=== PATIENT | male | born 1970 | race Caucasian/White ===

== ENCOUNTER 2018-12-09 14:05 | Inpatient (IN) | payer OTHER ==
[2018-12-09] MEDS ORDERED: Morphine 10 MG/ML VIAL (1 ml) IV ONE (17:27)
[2018-12-09] MEDS ORDERED: Ondansetron INJ* 2 MG/ML VIAL IV ONE (17:27)
[2018-12-09] MEDS ORDERED: NS 0.9% 1000 ML** 1,000 ML IV ONE (17:27)
[2018-12-09 17:47] LABS: ABS Basophils 0.1 10^3/ul (0-0.2); ABS Eosinophils 0.1 10^3/ul (0-0.6); ABS Lymphocytes 1.4 10^3/ul (1.0-4.8); ABS Monocytes 0.4 10^3/ul (0-0.8); ABS Neutrophils 3.3 10^3/ul (1.5-7.7); ABS Nucleated RBC 0 10^3/ul; Eosinophil % 2.2 %; Hematocrit 35 % (36-46); Hemoglobin 11.8 g/dL (14.0-18.0); Lymphocyte % 26.5 %; Mean Corpuscular HGB Conc 34 g/dL (31-36); Mean Corpuscular Hemoglobin 31 pg (27-31); Mean Corpuscular Volume 90 fL (80-94); Mean Platelet Volume 6.4 fL (7.4-10.4); Nucleated Red Blood Cells % 0; Platelet Count 220 10^3/uL (150-450); Red Blood Count 3.86 10^6 /uL (4.18-5.48); Red Cell Distribution Width 14 % (10.5-15); White Blood Count 5.4 10^3/uL (3.5-10.8)
[2018-12-09] MEDS ORDERED: Morphine 4 MG/ML VIAL (1 ml) 4 MG/ML VIAL ONE (17:50)
[2018-12-09 18:02] LABS: Albumin 4.2 g/dL (3.2-5.2); Albumin/Globulin Ratio 1.5 (1-3); BUN/Creatinine Ratio 28.6 (8-20); C Reactive Protein 1.64 mg/L (<8.01); Calcium 9.4 mg/dL (8.6-10.3); EGFR African American 118.5 (>60); EGFR Non-African American 97.9 (>60); Globulin 2.8 g/dL (2-4); Potassium 4.8 mmol/L (3.5-5.0); Total Bilirubin 0.3 mg/dL (0.2-1.0)
[2018-12-09] MEDS ORDERED: Iodixanol* (CONTRAST) 320 MG/ML 100 ML SDV IV ONE (18:10)
[2018-12-09 18:15] LABS: Urine Appearance Clear; Urine Bilirubin Negative (Negative); Urine Blood Negative (Negative); Urine Color Straw; Urine Glucose Negative (Negative); Urine Ketones Negative (Negative); Urine Nitrite Negative (Negative); Urine Protein Negative (Negative); Urine Specific Gravity 1.006 (1.010-1.030); Urine Urobilinogen Negative (Negative)
[2018-12-09] MEDS ORDERED: Lorazepam PYXIS KEY PRN ×3 (18:30→20:23)
[2018-12-09] MEDS ORDERED: LORazepam INJ* 2 MG/ML 1 ML VIAL IV ONE ×2 (18:30→18:31)
[2018-12-09] MEDS ORDERED: Lorazepam PYXIS KEY ONE ×2 (18:33→20:27)
[2018-12-09] MEDS ORDERED: LORazepam INJ* 2 MG/ML 1 ML VIAL IV PUSH ONE (20:23)
--- NOTE | 2018-12-09 21:21 | PN ---
Progress Note - Progress Note Date of Service: 12/09/18 Note: Surgery Progress Note Please see full dictate H&P but briefly, patient is a 48 yo M with a history of IVDU, DM and a right inguinal hernia for about 1.5 months that was reducible until this afternoon at about 12:30pm. He said he suddenly had pain around his right groin and was unable to reduce the hernia. He therefore came to the ED. Labs, vitals were within normal limits. CT abd was reviewed and showed an incarcerated right inguinal hernia repair with bowel. On exam he is tender and has a non reducible hernia. Informed consent was obtained for an open right inguinal hernia repair with mesh, possible bowel resection. Risks, benefits and alternatives were discussed. Risks include but are not limited to bleeding , hematoma, infection, mesh infection, testicular atrophy, injury to nearby structures, chronic pain, hernia recurrence and anastomotic leak should a bowel resection be performed. He understands and wishes to proceed.
[2018-12-09] MEDS ORDERED: Clindamycin 900 MG IVPREMIX(* 900 MG/50 ML SDV IV ONE (21:32)
[2018-12-09] MEDS ORDERED: Midazolam* 1 MG/ML 5 ML VIAL (5 MG) ONE (21:45)
[2018-12-09] MEDS ORDERED: Rocuronium* 10 MG/ML VIAL ONE (21:45)
[2018-12-09] MEDS ORDERED: fentaNYL* 50 MCG/ML 2 ML VIAL (100 MCG VIAL) ONE (21:45)
[2018-12-09] MEDS ORDERED: Gabapentin CAP(*) 300 MG PO ONE (21:54)
[2018-12-09] MEDS ORDERED: Gabapentin CAP(*) 300 MG ONE (21:55)
[2018-12-09] MEDS ORDERED: Famotidine IV* 10 MG/ML 2 ML (20 mg) IV SLOW PU ONE (21:55)
[2018-12-09] MEDS ORDERED: Famotidine IV* 10 MG/ML 2 ML (20 mg) ONE (21:56)
[2018-12-09] MEDS ORDERED: DiMENhydriNATE IV* 50 MG/ML VIAL IV PUSH PRN (21:56)
[2018-12-09] MEDS ORDERED: Acetaminophen IV 1GM/100ML * 1,000 MG/100 ML VIAL IVPB ONE (21:56)
[2018-12-09] MEDS ORDERED: Gabapentin CAP(*) 100 MG PO ONE (21:57)
[2018-12-09] MEDS ORDERED: Propofol* 10 MG/ML 20 ML BTL ONE (22:17)
[2018-12-09] MEDS ORDERED: Ondansetron INJ* 2 MG/ML VIAL ONE (22:17)
[2018-12-09] MEDS ORDERED: Ketorolac INJ* 30 MG/ML 1 ML VIAL ONE (22:17)
[2018-12-09] MEDS ORDERED: Lidocaine 2% PF * 5 ML VIAL ONE (22:17)
[2018-12-09] MEDS ORDERED: Dexamethasone IV* 4 MG/ML 1 ML (4 MG) ONE (22:17)
[2018-12-09] MEDS ORDERED: Succinylcholine* 20 MG/ML 10 ML VIAL ONE (22:17)
[2018-12-09] MEDS ORDERED: DiMENhydriNATE IV* 50 MG/ML VIAL ONE (22:17)
[2018-12-09] MEDS ORDERED: KETAMINE HCL* 50 MG/ML 10 ML VIAL ONE (22:19)
--- NOTE | 2018-12-09 22:51 | HP ---
HISTORY AND PHYSICAL: DATE OF ADMISSION: 12/09/18 SERVICE: General surgery. ATTENDING SURGEON: Calista Bragg MD. REASON FOR ADMISSION: Incarcerated right inguinal hernia. HISTORY OF PRESENT ILLNESS: Mr. Melendez is a 48-year-old man with a history of IV drug use, diabetes mellitus, and a formerly reducible right inguinal hernia for the past 1-1/2 months. The patient was in his normal state of health until about 12:30 this afternoon, when after eating lunch he suddenly had right inguinal pain and found he was unable to reduce his hernia. He says that he started having diffuse abdominal pain after this and he came to the emergency room for evaluation. He denies having any nausea or vomiting. He was passing flatus and did have a bowel movement earlier this morning. He said that his last IV drug use was about 5 months ago and he has no history of groin surgery in the past. PAST MEDICAL HISTORY: 1. Diabetes mellitus. 2. IV drug use. PAST SURGICAL HISTORY: Multiple bilateral knee surgeries. MEDICATIONS: 1. Suboxone. 2. Lantus. 3. Gabapentin. 4. Ibuprofen as needed. ALLERGIES: ZOSYN. FAMILY HISTORY: Noncontributory. SOCIAL HISTORY: Former IV drug user, currently in a drug detox facility. REVIEW OF SYSTEMS: Negative, except for diffuse abdominal pain and right groin pain. PHYSICAL EXAMINATION GENERAL: This is a middle-aged man, lying somewhat comfortably in bed, in no great distress and converses easily. VITAL SIGNS: Temperature is 98.9, pulse is 84, respiratory rate of 22, O2 sat is 95% on room air, blood pressure is 124/83. HEENT: Normocephalic, atraumatic. RESPIRATORY: Clear to auscultation bilaterally. CARDIOVASCULAR: Regular rate and rhythm. ABDOMEN: Soft, somewhat tender diffusely. No rebound tenderness. No guarding. The right groin, there is an inguinal hernia that is nonreducible and tender to palpation with no overlying skin changes. DIAGNOSTIC STUDIES/LAB DATA: Laboratory Values: White blood cell count is 5.4 , hemoglobin is 11.8, hematocrit 35, platelets are 220. Sodium is 138, potassium is 12.8, chloride is 101, CO2 of 33, BUN 24, creatinine is 0.84, glucose is 167. LFTs are normal. Imaging: CT abdomen and pelvis shows a right inguinal hernia containing loops of small-bowel with dilated loops noted entering via collaterals noted exiting from the hernia. Findings are concerning for obstruction. There is wall thickening noted of the small-bowel loop within the right inguinal hernia. There is trace stranding of fluid. There are regions of ground-glass opacification noted in the bilateral lung bases. ASSESSMENT AND PLAN: Mr. Melendez is a 48-year-old male with a history of IV drug use and diabetes who presents with an incarcerated right inguinal hernia since this afternoon around 12:30 p.m. Given that this is incarcerated with some stranding and there is some question of bowel viability, he must be urgently taken to the operating room for an open right inguinal hernia repair with mesh and a possible bowel resection. I reviewed the risks of the surgery, which include but are not limited to bleeding, hematoma, wound infection, mesh infection, injury to nearby structures, testicular atrophy, injury to the vas deferens, injury to the bladder, the possibility of anastomotic leak should a small-bowel resection be performed, a risk of hernia recurrence and other perioperative risks including myocardial infarction, stroke, and other systemic complications. Anesthetic options and risks will be discussed with the anesthesiologist separately. The patient understands all these things and he wishes to proceed urgently to the operating room. [id number]/[facility] #: [id number] MTDRebekah
[2018-12-09] MEDS ORDERED: Bupivacaine 0.25% SDV PF* 10 ML VIAL INJ ONE (22:53)
[2018-12-09] MEDS ORDERED: Gabapentin CAP(*) 100 MG ONE (23:15)
[2018-12-09] MEDS ORDERED: Acetaminophen IV 1GM/100ML * 100 ML ONE (23:15)
[2018-12-09] MEDS ORDERED: Ketorolac INJ* 15 MG/ML 1 ML VIAL IV PUSH PRN (23:42)
[2018-12-09] MEDS ORDERED: Ondansetron INJ* 2 MG/ML VIAL IV PRN (23:42)
[2018-12-09] MEDS ORDERED: Ibuprofen TAB* 600 MG PO PRN (23:42)
[2018-12-09] MEDS ORDERED: Acetaminophen TAB* 325 MG PO PRN (23:42)
[2018-12-09] MEDS ORDERED: Lactated Ringers 1000 ML Bag* 1,000 ML IV SCH (23:45)
--- NOTE | 2018-12-10 02:25 | OP ---
DATE OF OPERATION: 12/09/18 - ROOM #350 DATE OF : 72 SERVICE: General Surgery. ATTENDING SURGEON: Calista Bragg MD. FACETOR: Rene Montana MD. ANESTHESIOLOGIST: Kadie Johnson MD. ANESTHESIA: General endotracheal anesthesia. PRE-OP DIAGNOSIS: Incarcerated right inguinal hernia. POST-OP DIAGNOSIS: Incarcerated right inguinal hernia. OPERATIVE PROCEDURE: Open right inguinal hernia repair with mesh. ESTIMATED BLOOD LOSS: Minimal, 10 cc. INDICATIONS: Mr. Melendez is a 48-year-old male with a history of IV drug use and diabetes mellitus, who presented to the emergency room with a painful incarcerated right inguinal hernia. It was unable to be reduced, and on CT scan , there was evidence of thickening of the bowel that was within the sac. Therefore, he gave informed consent for an urgent open right inguinal hernia repair and possible small bowel resection. He understood the risks, benefits, and alternatives of the procedure and he wished to proceed. DESCRIPTION OF PROCEDURE: The patient was brought back to the operating room and placed on the operating table in the supine position. Sequential compression devices were placed in his bilateral lower extremities for DVT prophylaxis. Antibiotic with clindamycin was administered prior to the incision. General endotracheal anesthesia was induced and the patient's right groin and testicle were prepped and draped in normal sterile fashion. Prior to this, he did have a Vizcarra catheter placed in his bladder. Next, a time-out was performed, verifying the patient's name, MR number, and the procedure to be performed, which was a right inguinal hernia repair. On examination, it appeared that after induction of anesthesia, his inguinal hernia did appear to have reduced spontaneously. An oblique incision was made approximately 2 fingerbreadths above the inguinal ligament. The skin was divided down through subcutaneous tissue. Hailey fascia was divided and until the external oblique was exposed. Once this was exposed, the external ring was visible, and using Metzenbaum scissors, the external oblique aponeurosis was divided sharply and both upper and lower external oblique leaflets were retracted laterally and the inguinal canal contents were encircled using blunt dissection, and then once they were encircled, a Harborton drain was used to be able to retract them. The patient was noted to have a hernia sac that was in some areas rather thickened, and once the sac was from the cord contents, it was opened up and the intraabdominal contents were examined. There was no evidence of sliding hernia within the hernia sac, and there was a small amount of clear serous fluid from the intraabdominal cavity. Once this was noted, the hernia sac was completely dissected away from the cord structures down to the deep inguinal ring and then it was suture ligated and divided and taken off the table. After this, the hernia sac then retracted into the deep ring and then the cord structures were examined. Care was taken to avoid injury to the vas deferens. There was no evidence of a direct hernia; therefore, attention was turned towards repairing the floor of the inguinal canal. A polypropylene mesh was selected and secured to the pubic tubercle using a 3-0 Vicryl suture, which was then run up the inguinal ligament. Interrupted sutures were placed to secure the mesh at the conjoint tendon and tails were secured around the cord contents and approximated using a 3-0 Vicryl suture. Once this was done, the floor of the inguinal canal was very nicely reinforced with this mesh. At this point, hemostasis was obtained and then the external oblique aponeurosis was closed using a running 3-0 Vicryl suture and the external ring was reapproximated. Next, Hailey fascia was closed using interrupted 3-0 Vicryl sutures and the subcutaneous tissue was closed using interrupted 3-0 Vicryl sutures. The skin was closed using running 4-0 Monocryl suture, and prior to closing, approximately 30 cc of local anesthetic with 0.25 % Marcaine was administered to the field. After this, sterile dressing was then placed over the incision. The right testicle was noted to be in appropriate descended position in the testicle. The patient's anesthesia was reversed. His Vizcarra catheter was removed, and he was taken to PACU in stable condition. At the end of the case, all counts were correct and I was present during the entirety of the case. [id number]/[facility] #: [id number] [facility] HOSPITALRebekah
[2018-12-10] MEDS ORDERED: Heparin VIAL(*) 5000 UNITS/ML VIAL (FIVE THOUSAND) SUBCUT SCH (09:00)
[2018-12-10] MEDS ORDERED: Buprenorp/Nalox 8-2 MG FILM 1 EACH SL FILM SCH (09:00)
[2018-12-10] MEDS ORDERED: Dextrose 50% Syringe 50 ML* 25 GM/50 ML SYRINGE IV PUSH PRN (09:55)
--- NOTE | 2018-12-10 10:04 | PN ---
Progress Note - Progress Note Date of Service: 12/10/18 SOAP: Subjective:pod#1 s/p open right inguinal hernia repair with mesh minimal pain,amos solid diet,ambulating,voiding [] Objective: Vital Signs Temp 97.9 F 12/10/18 09:11 Pulse 75 12/10/18 09:11 Resp 17 12/10/18 09:11 BP 104/56 12/10/18 09:11 Pulse Ox 92 12/10/18 09:11 Intake & Output 12/09/18 12/10/18 12/10/18 18:59 06:59 18:59 Intake Total 1950 640 Output Total 700 800 Balance 1250 -160 Weight 215 lb 215 lb Intake: IV Fluids 1650 CLINDAMYCIN 900MG 50 LR 600 Oral 300 640 Output: Urine 700 800 Other: # Bowel Movements 0 lungs:clear bilat;heart:RRR;abd:+bs,soft,nondistended;R groin incision covered with gauze and tegaderm,no strike through drainage or erythema,appropriate tenderness;ext:nontender calves;FSBS 232 [] Assessment:stable pod#1 [] Plan:sliding scale insulin ordered;discharge after lunch today,instructions reviewed,office followup next week with []
[2018-12-10 11:30] VITALS: BP 117/65
[2018-12-10] MEDS ORDERED: Insulin LISPRO* 1 UNITS UNIT SUBCUT SCH (11:30)
--- NOTE | 2018-12-10 13:57 | DS ---
DISCHARGE SUMMARY: DATE OF ADMISSION: 12/09/18 DATE OF DISCHARGE: 12/10/18 SERVICE: General Surgery. ADMISSION DIAGNOSIS: Incarcerated right inguinal hernia. DISCHARGE DIAGNOSES: Incarcerated right inguinal hernia. OPERATION: Open right inguinal hernia repair with mesh. HOSPITAL COURSE: Mr. Doshi is a 48-year-old male with the history of IV drug use and diabetes mellitus, who presented to the emergency room on 12/09/18 with complaints of incarcerated right inguinal hernia that he could not reduce. He was having significant abdominal pain and the CT scan was also done showing small bowel within the right inguinal canal that appeared thickened with some stranding around and fluid. Given that this was unable to be reduced in the emergency room, he was taken urgently to the operating room for open right inguinal hernia repair with mesh. The surgery was uneventful and on the day of discharge, on postoperative day #1, the patient was doing very well. His abdominal pain was gone. He had minimal pain around his incision. He was tolerating a regular diet. He was ambulating. His vital signs were within normal limits and he was urinating without difficulty. Therefore, he is determined to be an appropriate candidate for discharge. DISCHARGE PHYSICAL EXAMINATION: Vital Signs: Temperature is 98.3, pulse is 78 , respiratory rate is 17, O2 sat is 93% on room air, blood pressure is 117/65. General: He is a young man lying very comfortably in bed, in no apparent distress, in good spirits. Right groin incision has non-saturated dressing over it. There is minimal swelling around the groin. Abdomen is soft, nontender, nondistended. DISCHARGE MEDICATIONS: None. The patient was told to resume his home medications. He declined narcotic medications for pain control and he was told to take Tylenol or ibuprofen as needed for pain. DISPOSITION: Home. CONDITION: Good. DISCHARGE INSTRUCTIONS: The patient was told to return to the emergency room for fever, chills, nausea, vomiting, increased abdominal pain or any significant swelling of his groin. He can also call the office. He will follow up with myself in a week for postoperative visit. [id number]/[facility] #: [id number] MTDRebekah
== END 2018-12-10 13:45 | DRG 228 ==
LOC: ED 14:05 → OR 21:15 → SSU 23:42
PROVIDERS: ADMIT Surgery; ATTEND Surgery
PROC: 0YU50JZ Supplement Right Inguinal Region with Synthetic Substitute, Open Approach (ICD-10-PCS; principal; 2018-12-09 21:30)
DX: K40.30 Unilateral inguinal hernia, with obstruction, without gangrene, not specified as recurrent (principal); E11.9 Type 2 diabetes mellitus without complications; Z96.651 Presence of right artificial knee joint; F19.90 Other psychoactive substance use, unspecified, uncomplicated; F17.200 Nicotine dependence, unspecified, uncomplicated; Z88.1 Allergy status to other antibiotic agents
CPT/HCPCS: 36415; 74177; 80053; 81003; 83605; 85025; 86140; 99284; A9270-GY; C1781; J0330; J1100; J1240; J1644; J1885; J2060; J2250; J2270; J2405; J2704; J3010; J3490; Q9967